=== PATIENT | male | born 1950 | race Caucasian/White ===

== ENCOUNTER → 2019-11-23 | Outpatient (CLI) | payer MEDICARE, OTHER ==
--- NOTE | 2019-11-23 12:38 | XCELERA REPORT ---
[address] [address] Transthoracic Echocardiogram Report Name: YARIEL SEGAL Age: 69 yrs Gender: Male : 1950 Patient Status: Preadmit Patient Location: [facility] Study Date: 11/23/2019 10:18 AM History: CAD CABG Atrial fibrillation Height: 69 in Weight: 192 lb BSA: 2.0 m2 Procedure: A complete two-dimensional transthoracic echocardiogram was performed (2D, M-mode, spectral and color flow Doppler). The study was technically adequate with some images being suboptimal in quality. Reason For Study: CORONARY ARTERY DISEASE Previous Evaluation: No previous studies were available. History: CAD. Dyslipidemia. HTN. Vascular surgeries/interventions: CABG. Ordering Physician: LESIA GOLDBERG Performed By: Josiah Soto Interpretation Summary Left ventricular systolic function is moderately reduced. The Ejection Fraction estimate is 25-30% The right ventricular systolic function is mildly reduced. There is a mild to moderate amount of mitral regurgitation There is a trace amount of tricuspid regurgitation There is no pericardial effusion. There is mild aortic stenosis; LOW EF; Thus severity could be higher MMode/2D Measurements & Calculations RVDd: 3.5 cm LVIDd: 5.7 cm FS: 26.3 % Ao root diam: 4.0 cm IVSd: 1.3 cm LVIDs: 4.2 cm EDV(Teich): 161.7 ml Ao root area: 12.6 cm2 LVPWd: 1.1 cm ESV(Teich): 79.3 ml LA dimension: 4.9 cm EF(Teich): 50.9 % LVOT diam: 2.3 cm LVOT area: 4.0 cm2 Doppler Measurements & Calculations MV E max tammi: MV P1/2t max tammi: Ao V2 max: LV V1 max P.5 cm/sec 107.6 cm/sec 209.0 cm/sec 1.8 mmHg MV P1/2t: 88.1 msec Ao max PG: LV V1 mean PG: MVA(P1/2t): 2.5 cm2 17.5 mmHg 0.83 mmHg MV dec slope: Ao V2 mean: LV V1 max: 140.3 cm/sec 67.3 cm/sec 358.0 cm/sec2 Ao mean PG: LV V1 mean: MV dec time: 0.17 sec 8.7 mmHg 42.0 cm/sec Ao V2 VTI: 44.5 cmLV V1 VTI: 15.2 cm LICO(I,D): 1.4 cm2 LV dP/dt: 478.0 mmHg/s LICO(V,D): 1.3 cm2 SV(LVOT): 60.9 ml PA V2 max: TR max tammi: MV P1/2t-pr_phl: 83.4 cm/sec 257.4 cm/sec 88.1 msec PA max P.8 mmHg TR max P.5 mmHg Left Ventricle The left ventricle is mildly to moderately dilated. There is mild to moderate concentric left ventricular hypertrophy. Left ventricular systolic function is moderately reduced. The Ejection Fraction estimate is 25-30%. LV diastolic function not assessed. There is moderate global hypokinesis of the left ventricle. There is anterior wall akinesis. Right Ventricle The right ventricle is mildly dilated. The right ventricular systolic function is mildly reduced. Atria The right atrium is mildly dilated. The left atrium is moderately dilated. Mitral Valve The mitral valve is grossly normal. There is a mild to moderate amount of mitral regurgitation. Aortic Valve The aortic valve is moderately calcified. The aortic valve is sclerotic and shows some degree of functional abnormality. There is mild aortic stenosis. There is a peak gradient of 18 mm of Hg. Ao V=2.14 m/s Mean Gradient=9 mm Hg LOW EF; Thus severity could be higher. There is a trace amount of aortic regurgitation. Tricuspid Valve The tricuspid valve is normal in structure and function. There is no tricuspid stenosis. There is a trace amount of tricuspid regurgitation. Right ventricular systolic pressure is estimated to be elevated at 30-40mmHg. There is mild pulmonary hypertension by echo. Great Vessels The aortic root is mildly dilated. Effusions There is no pericardial effusion. : LESIA GOLDBERG Anil
== END ==
LOC: SP 09:54
PROVIDERS: ATTEND Internal Medicine
DX: I25.810 Atherosclerosis of coronary artery bypass graft(s) without angina pectoris (principal); I48.20 Chronic atrial fibrillation, unspecified
CPT/HCPCS: 93306

== ENCOUNTER 2020-08-18 14:03 | Day surgery (SDC) | payer MEDICARE, OTHER ==
[~2020-08-18 14:03] MED LIST: KETOROLAC TROMETHAMINE 0.45% 4 DROP/0.4 ML DROPERETTE OD PRN; MIDAZOLAM 2 MG/2 ML INJ ONE
[2020-08-18] MEDS: TETRACAINE HCL 0.5% OPH SOLN 4 ML OD PRN ×4 (14:57→15:28)
[2020-08-18] MEDS: TROPICAMIDE 1% OPH SOLN 15 ML OD PRN ×3 (14:57→15:20)
[2020-08-18] MEDS: CYCLOPENTOLATE 0.2%/PHENYLEPHRINE 1% OPH SOLN 2 ML OD PRN ×3 (14:58→15:20)
[2020-08-18] MEDS: BESIFLOXACIN HCL 0.6% OPH SUSP 5 ML BOTTLE OD PRN ×4 (14:59→15:53)
[2020-08-18] MEDS: LIDOCAINE 1%/PHENYLEPHRINE 1.5% 1 ML VIAL ONE ×2 (15:35)
[2020-08-18] MEDS: CHONDR SU A NA/HYALUR INTRAOC KIT (SURGICARE) ONE ×2 (15:35)
[2020-08-18] MEDS: EPINEPHRINE INJ/PF 1 MG/1 ML AMPULE ONE ×2 (15:35)
[2020-08-18] MEDS: DORZOLAMIDE HCL 2%/TIMOLOL MALEAT 0.5% OPH SOLN 10 ML OD PRN ×2 (15:53)
[2020-08-18] MEDS: PREDNISOLONE ACETATE 1% OPH SUSP 5 ML OD PRN ×2 (15:53)
--- NOTE | 2020-08-18 20:36 | Operative Report ---
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 Henriquez is a 69-year-old male who presented to our clinic complaining of difficulty seeing to read, to drive and to play golf. On examination he was found to have a best corrected visual acuity of 20/25 and with glare testing 20/70 in the right eye. He was also found to have a 3+ nuclear 2+ cortical 2+ posterior subcapsular cataract In the right eye. We discussed the risks, benefits and alternatives of cataract extraction and intraocular lens implant as a means of improving his vision. Risks that were presented to the patient included infection, bleeding, retinal detachment, persistent corneal swelling and possible need for additional surgery. And I also explain to the patient may need to wear glasses after surgery. After our discussion he indicated his interest in having this procedure performed by signing and informed, witnessed consent form.] PROCEDURE: On the day of surgery, the patient was given a topical application to the right eye while in the preop holding area that consist of lidocaine jelly, cyclopentolate, Mydriacyl, phenylephrine and Tetracaine. The patient was taken to the operating room in the supine position in a standard eye bed. Intravenous sedation was administered and the patient was prepped and draped in the standard ophthalmic fashion in the operating room. Timeout was performed. Attention was directed to the right eye, where paracentesis was created at the 11:30 position at the limbus with a 15 degree blade. The anterior chamber was filled with 0.3 mL's of 1% methylparaben free lidocaine, and after 30 seconds, the anterior chamber was filled with viscoelastic material. A 3-plane corneal incision was then made with a javier keratome at 9 o'clock position at the limbus. Despite use of the dilating drops, the inner chamber lidocaine, and viscoelastic material, the pupil remained dilated only to about [4.5] mm in diameter. I chose to use a Malyugin ring to expand the pupil for better visualization of the lens during the remainder of the surgery. The [6.25] mm Malyugin was removed from package inspected and found to be free of defects. It was loaded into its rn access. The tip of the rn access was passed through that temporal limbal wound and through this the site the ring was advanced into the anterior chamber, where it grasped the iris at the pupil margin at the 3 o'clock, 6 o'clock, 9 oclock and 12 o'clock positions, and this extended the pupil to a [6.25] mm diameter. A continuous curvilinear capsulorrhexis was then made in the anterior capsule of the lens with a set of cystotome. The lens was hydrodissected using balanced saline solution and the lens nucleus was removed by phacoemulsification using the divide and conquer technique. The CDE was [14 .09]. The cortical material was removed from the posterior capsular bag with irrigation and aspiration. The posterior capsular bag was then filled with viscoelastic material, and a lens implant was inserted into the posterior capsular bag. The lens chosen for this case is a one-piece acrylic lens from [[employer] model SN60WF, serial number [id number]]. The lens was removed and inspected, and found to be without defects. It was loaded into an [[employer] D] rn access. The rn access was passed through temporal limb of the wound into the posterior capsular bag. It was positioned in the posterior capsular bag the Bryce spatula. There viscoelastic material was then removed from the anterior chamber and the posterior capsule bag by irrigation and aspiration. The Malyugin ring was disengaged from the iris with Sinskey hook, and it was removed from the temporal lobe of the wound with the Sinskey hook. The viscoelastic material was then removed by irrigation and aspiration. The wo unds were closed by stromal hydration. They were tested with Weck-Malka sponges and found to have no leaks. The intraocular pressure was assessed by manual palpation and found to be with in the physiologic range. The drapes and speculum were removed. Periocular skin was washed with a wet followed by a dry 4 x 4 gauze and drops of Besivance, Durezol, and Combigan were installed in the inferior cul-de-sac of the right eye. The eye was covered with a Reyes shield. The patient was taken to the recovery room in good condition. The patient tolerated the procedure well. The patient was given a prescription for Zymaxid to use every 2 hours while awake in the right eye, and he will return to my clinic for follow-up evaluation with me the day after surgery.
== END 2020-08-18 16:26 | disposition home or self-care (01) ==
LOC: SC 14:03
PROVIDERS: ATTEND Ophthalmology
DX: H25.811 Combined forms of age-related cataract, right eye (principal); I10 Essential (primary) hypertension; E78.00 Pure hypercholesterolemia, unspecified; I25.2 Old myocardial infarction; E11.36 Type 2 diabetes mellitus with diabetic cataract; I48.91 Unspecified atrial fibrillation; Z87.891 Personal history of nicotine dependence; K21.9 Gastro-esophageal reflux disease without esophagitis; Z95.5 Presence of coronary angioplasty implant and graft
CPT/HCPCS: 66982; 82962; 00142; V2632; J2250; J3490 ×2; A9270; J0171; 142